=== PATIENT | female | born 1970 | race Caucasian/White ===

== ENCOUNTER → 2024-07-04 07:31 | Outpatient (REF) | payer BC, SELFPAY ==
[2024-07-04 08:57] LABS: ALT (SGPT) 21 U/L (0-35); AST (SGOT) 25 U/L (14-36); Albumin 4.7 g/dl (3.5-5.0); Alkaline Phosphatase 35 U/L (38-126); Blood Urea Nitrogen 27 mg/dl (7-17); Calcium 9.4 mg/dl (8.4-10.2); Carbon Dioxide 28 mmol/L (22-30); Chloride 101 mmol/L (98-107); Glucose 96 mg/dl (70-99); HDL Cholesterol 106 mg/dl; LDL Cholesterol, Calculated 119 mg/dl; Potassium 4.9 mmol/L (3.5-5.1); Sodium 138 mmol/L (135-145); Total Bilirubin 0.5 mg/dl (0.2-1.3); Total Cholesterol 239 mg/dl (50-199); Total Protein 7.4 g/dl (6.3-8.2); Triglyceride 70 mg/dl (10-149); Very Low Density Lipoprotein 14 mg/dl (0-30); eGFR > 60.00
[2024-07-04 09:18] LABS: Free T4 0.73 ng/dl (0.78-2.19)
[2024-07-04 09:32] LABS: TSH 3.25 uIU/ml (0.47-4.68)
[2024-07-04 09:58] LABS: Glycohemoglobin (HgbA1c) 5.1 % (4.0-5.6)
== END ==
LOC: REG 07:31
PROVIDERS: ATTENDING PHYSICIAN Physician Assistant Medical
DX: F90.0 Attention-deficit hyperactivity disorder, predominantly inattentive type (principal); E78.2 Mixed hyperlipidemia; R73.9 Hyperglycemia, unspecified
CPT/HCPCS: 36415; 80053; 80061; 83036; 84439; 84443